=== PATIENT | male | born 1990 | race Caucasian/White ===

== ENCOUNTER 2018-01-16 19:12 | Emergency (ER) | payer OTHER ==
[~2018-01-16] VITALS: Ht 177.8 cm; Wt 70.3 kg
[2018-01-16 20:08] LABS: ABSOLUTE BASOPHIL COUNT 0.1 /CUMM (0.0-0.2); ABSOLUTE EOSINOPHIL COUNT 0.2 /CUMM (0.0-0.7); ABSOLUTE GRANULOCYTE CT 8.6 /CUMM (1.4-6.5); BASOPHIL % 0.5 % (0.0-2.0); EOSINOPHIL % 1.8 % (0-5); GRANULOCYTE % 72.7 % (42.2-75.2); HEMATOCRIT 49.2 % (42-52); MEAN CORPUSCULAR HGB 29.6 PG (27.0-31.0); MEAN CORPUSCULAR HGB CONC 33.1 G/DL (33.0-37.0); MEAN CORPUSCULAR VOLUME 89.4 FL (80.0-94.0); MEAN PLATELET VOLUME 8.7 FL (7.4-10.4); PLATELET COUNT 289 /CUMM (130-400); RBC DISTRIBUTION WIDTH 13.5 % (11.5-14.5); WHITE BLOOD CELL COUNT 11.8 /CUMM (4.8-10.8)
--- NOTE | 2018-01-16 21:04 | ED CARDIAC/CP/PALPITATIONS ---
See Addendum History of Present Illness General Chief Complaint: Chest Pain Stated Complaint: PT IS HAVING CHEST PAIN Source: patient Exam Limitations: no limitations Vital Signs & Intake/Output Vital Signs & Intake/Output Vital Signs Date Time Temp Pulse Resp B/P B/P Pulse O2 O2 Flow FiO2 Mean Ox Delivery Rate 01/166 Room Air 01/16 2123 97.7 81 18 131/71 97 Room Air 01/16 1936 97.3 70 16 123/78 97 ED Intake and Output 01/17 0000 01/16 1200 Intake Total Output Total Balance Patient 155 lb Weight Weight Reported by Patient Measurement Method Allergies Coded Allergies: No Known Allergies (01/16/18) Triage Note: PT PRESENTS TO THE ER SENT IN FROM [facility] C/O CHEST PAIN THAT HAS STARTED 2 DAYS AGO..PER PT WHEN IT STARTED THE PAIN WAS 4/10 AND NOW PT STATES THAT THE PAIN IS A 2/10. PT STATES HE HAS HAD A COUGH AND DENIES DIFF BREATHING. EKG DONE AT [facility] HR 86. Triage Nurses Notes Reviewed? yes Onset: Abrupt Duration: gone now, intermittent Timing: multiple episodes today Radiation: no radiation HPI: Patient is a 27-year-old male with an unremarkable past medical history presents emergency room with a five-day history of intermittent chest pain complaint of dull achy in nature substernal nonradiating that has paroxysmal nature work comes and goes denies any arm and jaw pain nausea vomiting leg swelling or hemoptysis DVT illicit drug use recent travel or recent surgery Denies any fever or chills No family history of cardiac disease (Max Lizarraga) Past History Travel History Traveled to [place] past 21 day No Medical History Any Pertinent Medical History? none Surgical History Surgical History: non-contributory Psychosocial History What is your primary language Wolof Tobacco Use: Never used Family History Hx Contributory? No (Max Lizarraga) Review of Systems Review of Systems Constitutional: Reports: no symptoms. EENTM: Reports: no symptoms. Respiratory: Reports: see HPI. Cardiovascular: Reports: see HPI, chest pain. GI: Reports: no symptoms. Genitourinary: Reports: no symptoms. Musculoskeletal: Reports: no symptoms. Skin: Reports: no symptoms. Neurological/Psychological: Reports: no symptoms. Hematologic/Endocrine: Reports: no symptoms. Immunologic/Allergic: Reports: no symptoms. All Other Systems: Reviewed and Negative (Max Lizarraga) Physical Exam Physical Exam General Appearance: no apparent distress, alert, comfortable Head: atraumatic Eyes: Bilateral: normal appearance. Ears, Nose, Throat: normal pharynx Neck: supple Respiratory: normal breath sounds, chest non-tender, no respiratory distress Cardiovascular: regular rate/rhythm Gastrointestinal: normal bowel sounds, soft, non-tender Neurologic/Psych: no motor/sensory deficits Skin: intact, normal color Core Measures ACS in differential dx? Yes CVA/TIA Diagnosis No Sepsis Present: No Sepsis Focused Exam Completed? No (Max Lizarraga) Progress Differential Diagnosis: AMI, atrial fibrillation, cholecystitis, CHF/pulm edema, costochondritis, hyperkalemia, hypovolemia, hyperthyroid, hyperventilation, intracranial hemorrhage, musculoskeletal pain, myocarditis, pancreatitis, pericarditis, pneumonia, pneumothorax, PSVT, pulmonary embolism, PUD/GERD, PVCs/ PACs, respiratory failure, sepsis, unstable angina, V-fib/V-Tach, WPW syndrome Plan of Care: Orders Procedure Date/time Status URINE DRUG SCREEN FOR ER ONLY 01/16 2013 Complete URINALYSIS 01/16 2013 Complete TROPONIN LEVEL 01/16 1947 Complete D-DIMER 01/16 1947 Complete COMPREHENSIVE METABOLIC PANEL 01/16 1947 Complete CBC WITHOUT DIFFERENTIAL 01/16 1947 Complete EKG 01/16 1913 Active Laboratory Tests 01/16/185: Urine Opiates Screen < 100, Methadone Screen < 40, Barbiturate Screen < 60, Ur Phencyclidine Scrn < 6.00, Amphetamines Screen < 100, U Benzodiazepines Scrn < 85, Urine Cocaine Screen < 50, Urine Cannabis Screen < 5.00, Urine Color YEL, Urine Clarity CLEAR, Urine pH 6.0, Ur Specific [place] 1.025, Urine Protein NEG, Urine Ketones NEG, Urine Nitrite NEG, Urine Bilirubin NEG, Urine Urobilinogen 0.2, Ur Leukocyte Esterase NEG, Ur Microscopic SEDIMENT EXAMINED, Urine RBC 3-5, Urine WBC RARE, Ur Epithelial Cells RARE, Urine Mucus MOD H, Urine Hemoglobin SMALL H, Urine Glucose NEG 01/16/18 1950: Anion Gap 13, Estimated GFR > 60, BUN/Creatinine Ratio 18.9, Glucose 86, Calcium 10.0, Total Bilirubin 0.5, AST 21, ALT 37, Alkaline Phosphatase 52, Troponin I < 0.01, Total Protein 8.2, Albumin 4.5, Globulin 3.7, Albumin/Globulin Ratio 1.2, D-Dimer High Sensitivty < 200, CBC w Diff NO MAN DIFF REQ, RBC 5.50, MCV 89.4, MCH 29.6, MCHC 33.1, RDW 13.5, MPV 8.7, Gran % 72.7, Lymphocytes % 16.6 L, Monocytes % 8.4, Eosinophils % 1.8, Basophils % 0.5, Absolute Granulocytes 8.6 H, Absolute Lymphocytes 2.0, Absolute Monocytes 1.0 H, Absolute Eosinophils 0.2 , Absolute Basophils 0.[address] Lopez was paged [phone]- Dr. Lopez was paged Family and patient no longer wanted to wait to discuss EKG and patient's chest pain symptoms with cardiology which I strongly advise patient tomorrow to follow up with [employer]dl company driver. Upon discharge patient looks well distress Heart score 0 Patient does have nonspecific EKG abnormalities however patient's symptoms are atypical Diagnostic Imaging: Viewed by Me: Radiology Read. CXR Impression: no acute abnormality, no infiltrates Initial ED EK BPM, NOTED NONSPECIFIC ST ELEVATION IN V2, V3 Comments: PATIENT: JACLYN DIEHL PRESENT AGE: 27 PATIENT ACCOUNT NO: [id number] : 92 LOCATION: [facility] ORDERING PHYSICIAN: Max COLLINS SERVICE DATE: 01/16/18 EXAM TYPE: RAD - XRY-CHEST XRAY, TWO VIEWS EXAMINATION: XR CHEST CLINICAL INFORMATION: Chest pain COMPARISON: None TECHNIQUE: 2 views of the chest were obtained. FINDINGS: Mild scoliosis convex right. No pneumothorax. No significant abnormality is noted involving the heart, lungs, mediastinum, bony thorax or soft tissues. IMPRESSION: No active chest disease. DICTATED BY: Rui Haider MD DATE/TIME DICTATED:01/16/182200 BOOK SHELVER:JACOBO DATE/TIME TRANSCRIBED:12/22 (Max Lizarraga) Departure Departure Disposition: HOME OR SELF CARE Condition: Stable Clinical Impression Primary Impression: Chest pain Referrals: Patient Has No Primary Care Dr (PCP/Family) Yovanny Lopez MD, V. Additional Instructions: As discussed tomorrow please follow up with cdl company driver Dr. Lopez if symptoms worsen or IF YOU develop new concerning symptom return to emergency room Departure Forms: Customer Survey General Discharge Information (Max Lizarraga) PA/ORGANISATION AND METHODS ANALYST Co-Sign Statement Statement: ED Attending supervision documentation- [] I saw and evaluated the patient. I have also reviewed all the pertinent lab results and diagnostic results. I agree with the findings and the plan of care as documented in the PA's/ORGANISATION AND METHODS ANALYST's documentation. [x] I have reviewed the ED Record and agree with the PA's/ORGANISATION AND METHODS ANALYST's documentation. [] Additions or exceptions (if any) to the PAs/ORGANISATION AND METHODS ANALYST's note and plan are summarized below: I reviewed the patient's EKG. Normal sinus rhythm with early repolarization. EKG was reviewed with the covering [employer] company driver. PERC score was low risk. The patient will follow-up the cdl company driver this week.] (Stanley Suazo DO) Critical Care Note Critical Care Note Critical Care Time: non-applicable (Max Lizarraga)
[2018-01-16 21:23] VITALS: BP 131/71
--- NOTE | 2018-01-16 22:05 | RADIOLOGY REPORT ---
EXAMINATION: XR CHEST CLINICAL INFORMATION: Chest pain COMPARISON: None TECHNIQUE: 2 views of the chest were obtained. FINDINGS: Mild scoliosis convex right. No pneumothorax. No significant abnormality is noted involving the heart, lungs, mediastinum, bony thorax or soft tissues. IMPRESSION: No active chest disease.
== END 2018-01-16 22:46 ==
LOC: ERH 19:12
PROVIDERS: Emergency Medicine
DX: R07.89 Other chest pain (principal)
CPT/HCPCS: 71046; 80307; 81001; 93005; 93010